=== PATIENT | female | born 1990 | race Caucasian/White ===

== ENCOUNTER 2017-03-11 19:52 | Emergency (ER) | payer SELFPAY ==
[~2017-03-11] VITALS: Ht 149.9 cm; Wt 50.0 kg
[~2017-03-11 19:52] MED LIST: ALPR.5 PO; CLIN2CRE VAGINAL; CLIN2CRE5 VAGINAL; SING4GRA; TRINTAB7 PO
[2017-03-11 20:20] VITALS: BP 119/56; PULSE 77; RESP 16; TEMP 97.8; O2SAT 100
[2017-03-11] MEDS ORDERED: SODIUM CHLOR 0.9% 1000 ML INJ 1,000 ML IV ONE ×2 (20:22→21:45)
[2017-03-11] MEDS ORDERED: ZOFR4TAB3 SL (20:24)
[2017-03-11] MEDS ORDERED: ALUMINUM/MAGNESIUM/SIMETH 30 ML CUP PO ONE (20:30)
[2017-03-11] MEDS ORDERED: PROCHLORPERAZINE INJ 10 MG/2 ML VIAL IV PUSH ONE (20:30)
[2017-03-11] MEDS ORDERED: LIDOCAINE VISCOUS 2% SOLN 15 ML UDC PO ONE (20:30)
[2017-03-11 21:09] LABS: BACTERIA, URINE OCC /hpf; BILIRUBIN, URINE NEG (NEG); BLOOD, URINE NEG (NEG); GLUCOSE,URINE NEG (NEG); KETONE, URINE 150 mg/dL (NEG); MUCUS URINE FEW /lpf (OCC); NITRITE,URINE NEG (NEG); SQUAMOUS EPITHELIAL CELL URINE 4 /hpf (0-5); URINE COLOR YELLOW (YELLW/STRAW); URINE LEUKOCYTE ESTERASE SMALL (NEG)
[2017-03-11] MEDS ORDERED: diphenhydrAMINE HCL 50 MG/ML VIAL IV PUSH ONE (21:15)
[2017-03-11] MEDS ORDERED: PROMETHAZINE INJ 25 MG/ML VIAL IM ONE (21:15)
[2017-03-11 21:28] LABS: AUTOMATED NEUTROPHIL # 12.6 TH/MM3 (1.8-7.7); BASOPHIL # 0.1 TH/MM3 (0-0.2); BASOPHIL % 0.4 % (0.0-2.0); EOSINOPHIL % 0.1 % (0.0-4.0); HEMATOCRIT 34.9 % (35.0-46.0); HEMOGLOBIN 11.7 GM/DL (11.6-15.3); LYMPHOCYTE # 1.5 TH/MM3 (1.0-4.8); MEAN CELL VOLUME 88.7 FL (80.0-100.0); MEAN CORPUSCULAR HEMOGLOBIN 29.7 PG (27.0-34.0); MEAN CORPUSCULAR HGB CONC 33.4 % (32.0-36.0); MEAN PLATELET VOLUME 8.8 FL (7.0-11.0); MONO % 2.7 % (0.0-8.0); MONOCYTE # 0.4 TH/MM3 (0-0.9); NEUT % 86.8 % (16.0-70.0); PLATELET COUNT 382 TH/MM3 (150-450); RED BLOOD COUNT 3.94 MIL/MM3 (4.00-5.30); RED CELL DISTRIBUTION WIDTH 15.2 % (11.6-17.2); WHITE BLOOD COUNT 14.6 TH/MM3 (4.0-11.0)
--- NOTE | 2017-03-11 21:36 | PD ---
HPI Chief Complaint: GI Complaint Time Seen by Provider: 20:22 Travel History International Travel<30 days: No Contact w/Intl Traveler<30days: No Traveled to known affect area: No History of Present Illness HPI 26-year-old female arrives due to vomiting. She called EMS due to the vomiting and severe nausea. She is noted to be 2 para 1 with one prior elective . No vaginal bleeding or discharge. She has Zofran at home however has not taken any. She reports generalized abdominal pain for the past day. No fever. No diarrhea. No dysuria. PFSH Past Medical History Medical History: Denies Significant Hx Diabetes: No Diminished Hearing: No Immunizations Current: Yes (SCHOOL SHOTS UTD) Migraines: Yes Influenza Vaccination: No ?: LMP: 01/17/17 : 1 : 1 Past Surgical History Oral Surgery: Yes (UPPER AND LOWER WISDOM TEETH EXTRACTED 05-13-08) Social History Alcohol Use: No Tobacco Use: No Substance Use: No Allergies-Medications (Allergen,Severity, Reaction): Coded Allergies: No Known Allergies (Verified Adverse Reaction, Unknown, 03/11/17) Reported Meds & Prescriptions Reported Meds & Active Scripts Active Reglan (Metoclopramide HCl) 10 Mg Tab 10 Mg PO TIDAC Reported Zofran Odt (Ondansetron Odt) 4 Mg Tab 4 Mg SL Q6HR PRN Review of Systems Except as stated in HPI: all other systems reviewed are Neg General / Constitutional: No: Fever Physical Exam Narrative GENERAL: 26-year-old female pleasant well-nourished well-developed mild to moderate distress SKIN: Warm and dry. HEAD: Atraumatic. Normocephalic. EYES: Pupils equal and round. No scleral icterus. No injection or drainage. ENT: No nasal bleeding or discharge. Mucous membranes pink and moist. NECK: Trachea midline. No JVD. CARDIOVASCULAR: Regular rate and rhythm. RESPIRATORY: No accessory muscle use. Clear to auscultation. Breath sounds equal bilaterally. GASTROINTESTINAL: Diffuse nonspecific tenderness. Guarding is present. MUSCULOSKELETAL: Extremities without clubbing, cyanosis, or edema. No obvious deformities. NEUROLOGICAL: Awake and alert. No obvious cranial nerve deficits. Motor grossly within normal limits. Five out of 5 muscle strength in the arms and legs. Normal speech. PSYCHIATRIC: Appropriate mood and affect; insight and judgment normal. Data Data Last Documented VS Vital Signs Date Time Temp Pulse Resp B/P (MAP) Pulse Ox O2 Delivery O2 Flow Rate FiO2 03/11/17 20:20 97.8 77 16 119/56 (77) 100 Orders Orders Beta Hcg (Quant/Titer) (03/11/17 20:22) Complete Blood Count With Diff (03/11/17 20:22) Comprehensive Metabolic Panel (03/11/17 20:22) Us Pelvis (Ques Preg/Ectopic) (03/11/17 ) Urinalysis - C+S If Indicated (03/11/17 20:22) Iv Access Insert/Monitor (03/11/17 20:22) Ecg Monitoring (03/11/17 20:22) Sodium Chlor 0.9% 1000 Ml Inj (Ns 1000 M (03/11/17 20:22) Ed Urine Pregnancytest Poc (03/11/17 20:22) Prochlorperazine Inj (Compazine Inj) (03/11/17 20:30) Lipase (03/11/17 20:22) Al-Mag Hy-Si 40-40-4 Mg/Ml Liq (Mag-Al P (03/11/17 20:30) Lidocaine 2% Viscous (Xylocaine 2% Visco (03/11/17 20:30) Diphenhydramine Inj (Benadryl Inj) (03/11/17 21:15) Promethazine Inj (Phenergan Inj) (03/11/17 21:15) Sodium Chlor 0.9% 1000 Ml Inj (Ns 1000 M (03/11/17 21:45) Metoclopramide Inj (Reglan Inj) (03/11/17 23:30) Ed Discharge Order (03/11/17 23:23) Acetaminophen (Tylenol) (03/11/17 23:45) Labs Laboratory Tests Test 03/11/17 20:30 White Blood Count 14.6 TH/MM3 Red Blood Count 3.94 MIL/MM3 Hemoglobin 11.7 GM/DL Hematocrit 34.9 % Mean Corpuscular Volume 88.7 FL Mean Corpuscular Hemoglobin 29.7 PG Mean Corpuscular Hemoglobin Concent 33.4 % Red Cell Distribution Width 15.2 % Platelet Count 382 TH/MM3 Mean Platelet Volume 8.8 FL Neutrophils (%) (Auto) 86.8 % Lymphocytes (%) (Auto) 10.0 % Monocytes (%) (Auto) 2.7 % Eosinophils (%) (Auto) 0.1 % Basophils (%) (Auto) 0.4 % Neutrophils # (Auto) 12.6 TH/MM3 Lymphocytes # (Auto) 1.5 TH/MM3 Monocytes # (Auto) 0.4 TH/MM3 Eosinophils # (Auto) 0.0 TH/MM3 Basophils # (Auto) 0.1 TH/MM3 CBC Comment DIFF FINAL Differential Comment Urine Color YELLOW Urine Turbidity HAZY Urine pH 7.0 Urine Specific [place] 1.028 Urine Protein 30 mg/dL Urine Glucose (UA) NEG mg/dL Urine Ketones 150 mg/dL Urine Occult Blood NEG Urine Nitrite NEG Urine Bilirubin NEG Urine Urobilinogen LESS THAN 2.0 MG/DL Urine Leukocyte Esterase SMALL Urine RBC 1 /hpf Urine WBC 8 /hpf Urine Squamous Epithelial Cells 4 /hpf Urine Bacteria OCC /hpf Urine Mucus FEW /lpf Microscopic Urinalysis Comment CULT NOT INDICATED Blood Urea Nitrogen 8 MG/DL Creatinine 0.85 MG/DL Random Glucose 105 MG/DL Total Protein 7.8 GM/DL Albumin 4.2 GM/DL Calcium Level 9.7 MG/DL Alkaline Phosphatase 46 U/L Aspartate Amino Transf (AST/SGOT) 11 U/L Alanine Aminotransferase (ALT/SGPT) 14 U/L Total Bilirubin 0.5 MG/DL Sodium Level 135 MEQ/L Potassium Level 3.7 MEQ/L Chloride Level 102 MEQ/L Carbon Dioxide Level 18.1 MEQ/L Anion Gap 15 MEQ/L Estimat Glomerular Filtration Rate 81 ML/MIN Lipase 73 U/L Human Chorionic Gonadotropin, Quant 43256 MIU/ML [facility] Medical Decision Making Medical Screen Exam Complete: Yes Emergency Medical Condition: Yes Medical Record Reviewed: Yes Differential Diagnosis IUP, UTI, ectopic , ov torsion, appendicitis, TOA, cervicitis, BV, Trichomoniasis, ov cyst, hernia, mittelschmerz, pain from menstruation Narrative Course CBC & BMP Diagram 03/11/17 20:30 Total Protein 7.8, Albumin 4.2, Calcium Level 9.7, Alkaline Phosphatase 46, Aspartate Amino Transf (AST/SGOT) 11 L, Alanine Aminotransferase (ALT/SGPT) 14, Total Bilirubin 0.5 Lipase 73 HCG 22,415 UA: sm leuk est, 8 wbcs Last Impressions Pelvis Ultrasound 03/11/17 0000 Signed Impressions: Service Date/Time: Saturday, March 11, 2017 21:08 - CONCLUSION: 1. Single intrauterine at approximately 5 weeks 5 days gestational age. No perceptible heart tones and clinical/ultrasound followup recommended as indicated. 2. 1 cm corpus luteal cyst of the right ovary. No evidence of ectopic. 3. Normal left ovary. 4. No free fluid. Nick Guerrero MD The patient is resting comfortably and feels better, is alert and in no distress. The patients results and examination findings were discussed. The repeat examination is unremarkable and benign. The history, exam, diagnostic testing, and current condition do not suggest any significant pathology to warrant further testing, continued ED treatment, admission, or surgical evaluation at this point. The vital signs have been stable. The patient does not have uncontrollable pain, intractable vomiting, or other significant symptoms. The patient's condition is stable and appropriate for discharge. The patient will pursue further outpatient evaluation with a primary care physician or other designated or consulting physician as indicated in the discharge instructions. The patient expressed understanding and was agreeable with this plan. Diagnosis Primary Impression: Nausea & vomiting Qualified Codes: R11.2 - Nausea with vomiting, unspecified Additional Impression: Abdominal pain during intrauterine Referrals: Myla Robert MD 2 days Phosphoric Acid Operator 2 days Med/Other Pt SpecificInfo: Prescription(s) given Scripts Metoclopramide (Reglan) 10 Mg Tab 10 MG PO TIDAC for Nausea/Vomiting, #20 TAB 0 Refills Prov: Yefri Salinas MD 03/11/17 Disposition: 01 DISCHARGE HOME Condition: Stable Yefri Salinas MD Mar 11, 2017 21:36
[2017-03-11 21:46] LABS: ALBUMIN 4.2 GM/DL (3.4-5.0); AST (GOT) 11 U/L (15-37); BICARBONATE 18.1 MEQ/L (21.0-32.0); BLOOD UREA NITROGEN 8 MG/DL (7-18); CALCIUM 9.7 MG/DL (8.5-10.1); CHLORIDE 102 MEQ/L (98-107); CREATININE 0.85 MG/DL (0.50-1.00); GLOMERULAR FILTRATION RATE 81 ML/MIN (>89); GLUCOSE,RANDOM 105 MG/DL (74-106); LIPASE 73 U/L (73-393); SODIUM (NA) 135 MEQ/L (136-145)
[2017-03-11 21:47] LABS: ALT (GPT) 14 U/L (10-53)
[2017-03-11 22:03] LABS: ALKALINE PHOSPHATASE 46 U/L (45-117); TOTAL BILIRUBIN ADULT 0.5 MG/DL (0.2-1.0); TOTAL PROTEIN 7.8 GM/DL (6.4-8.2)
--- NOTE | 2017-03-11 22:16 | RADRPT ---
EXAM DATE/TIME: 03/11/2017 21:08 [place] COMPARISON: No previous studies available for comparison. INDICATIONS : Pelvic pain. LAB(S): Beta-hC MEDICAL HISTORY : Migraine. SURGICAL HISTORY : Oral surgery. Left foot surgery. ENCOUNTER: Initial ACUITY: 1 month PAIN SCORE: 10/10 LOCATION: Bilateral pelvis MEASUREMENTS: UTERUS: 8.2 x 5.6 x 5.4 cm ENDOMETRIAL STRIPE: 10 mm RIGHT OVARY: 2.0 x 2.3 x 2.0 cm LEFT OVARY: 2.8 x 1.9 x 1.6 cm FREE FLUID: No CROWN RUMP LENGTH: 0.22 cm = 5 WKS 5 DAYS FINDINGS: UTERUS: Gestational sac, yolk sac and pole seen within the uterine cavity. Lind-rump like is 2.2 mm wh ich corresponds to a gestational age of 5 weeks 5 days. No perceptible heart tones. RIGHT OVARY: 1 cm cyst. LEFT OVARY: Ovary contains no mass or significant cystic lesion. MISCELLANEOUS: No free fluid. CONCLUSION: 1. Single intrauterine at approximately 5 weeks 5 days gestational age. No perceptible feta l heart tones and clinical/ultrasound followup recommended as indicated. 2. 1 cm corpus luteal cyst of the right ovary. No evidence of ectopic. 3. Normal left ovary. 4. No free fluid. Nick Guerrero MD on March 11, 2017 at 22:10 Board Certified Radiologist. This report was verified electronically.
[2017-03-11] MEDS ORDERED: REGL10TA5 PO (23:15)
[2017-03-11] MEDS ORDERED: METOCLOPRAMIDE HCL 10 MG/2 ML VIAL IV PUSH ONE (23:30)
[2017-03-11] MEDS ORDERED: ACETAMINOPHEN 325 MG TAB PO ONE (23:45)
== END 2017-03-11 23:54 | disposition home or self-care (01) ==
LOC: NEPE 19:52
DX: O21.9 Vomiting of pregnancy, unspecified (principal); Z3A.01 Less than 8 weeks gestation of pregnancy
CPT/HCPCS: 76700; 80053; 81001; 83690; 84702; 84703; 85025; 96361; 96372; 96374; 96375; 99285; J0780; J1200; J2550; J2765; J7030

== ENCOUNTER 2017-08-06 05:09 | Emergency (ER) | payer BC ==
[~2017-08-06] VITALS: Ht 149.9 cm; Wt 55.0 kg
[~2017-08-06 05:09] MED LIST changes: -ALPR.5 PO; -CLIN2CRE VAGINAL; -CLIN2CRE5 VAGINAL; +REGL10TA5 PO; -SING4GRA; -TRINTAB7 PO; +ZOFR4TAB3 SL
[2017-08-06 05:12] VITALS: BP 148/69; PULSE 78; RESP 24; TEMP 97.7; O2SAT 100
[2017-08-06] MEDS ORDERED: SODIUM CHLOR 0.9% 1000 ML INJ 1,000 ML IV SCH (05:50)
[2017-08-06] MEDS ORDERED: KETOROLAC TROMETHAMINE 30 MG/ML (IVP) VIAL IVP ONE (06:00)
[2017-08-06] MEDS ORDERED: PROCHLORPERAZINE INJ 10 MG/2 ML VIAL IV PUSH ONE (06:00)
[2017-08-06] MEDS ORDERED: diphenhydrAMINE HCL 50 MG/ML VIAL IV PUSH ONE (06:00)
[2017-08-06] MEDS ORDERED: SODIUM CHLORIDE 0.9% FLUSH 10 ML FLUSH IV FLUSH PRN (06:00)
[2017-08-06 06:11] LABS: AUTOMATED NEUTROPHIL # 7.6 TH/MM3 (1.8-7.7); BASOPHIL % 0.5 % (0.0-2.0); HEMATOCRIT 36.4 % (35.0-46.0); HEMOGLOBIN 12.6 GM/DL (11.6-15.3); LYMPH % 12.8 % (9.0-44.0); LYMPHOCYTE # 1.2 TH/MM3 (1.0-4.8); MEAN CELL VOLUME 91.2 FL (80.0-100.0); MEAN CORPUSCULAR HEMOGLOBIN 31.5 PG (27.0-34.0); MEAN CORPUSCULAR HGB CONC 34.5 % (32.0-36.0); MEAN PLATELET VOLUME 7.9 FL (7.0-11.0); MONO % 3.3 % (0.0-8.0); MONOCYTE # 0.3 TH/MM3 (0-0.9); NEUT % 83.4 % (16.0-70.0); PLATELET COUNT 396 TH/MM3 (150-450); RED BLOOD COUNT 3.99 MIL/MM3 (4.00-5.30); RED CELL DISTRIBUTION WIDTH 15.3 % (11.6-17.2); WHITE BLOOD COUNT 9.1 TH/MM3 (4.0-11.0)
[2017-08-06 06:23] LABS: BACTERIA, URINE OCC /hpf; BILIRUBIN, URINE NEG (NEG); BLOOD, URINE NEG (NEG); GLUCOSE,URINE NEG (NEG); KETONE, URINE 80 OR GREATER mg/dL (NEG); MUCUS URINE MOD /lpf (OCC); NITRITE,URINE POS (NEG); SQUAMOUS EPITHELIAL CELL URINE 6 /hpf (0-5); URINE COLOR YELLOW (YELLW/STRAW); URINE LEUKOCYTE ESTERASE NEG (NEG)
[2017-08-06 06:35] LABS: ALBUMIN 4.4 GM/DL (3.4-5.0); AST (GOT) 18 U/L (15-37); BICARBONATE 20.4 MEQ/L (21.0-32.0); BLOOD UREA NITROGEN 10 MG/DL (7-18); CALCIUM 9.4 MG/DL (8.5-10.1); CHLORIDE 108 MEQ/L (98-107); CREATININE 0.95 MG/DL (0.50-1.00); GLOMERULAR FILTRATION RATE 71 ML/MIN (>89); GLUCOSE,RANDOM 106 MG/DL (74-106); SODIUM (NA) 142 MEQ/L (136-145)
[2017-08-06 06:36] LABS: ALT (GPT) 20 U/L (10-53)
[2017-08-06 06:38] LABS: ALKALINE PHOSPHATASE 50 U/L (45-117); TOTAL BILIRUBIN ADULT 0.5 MG/DL (0.2-1.0); TOTAL PROTEIN 8.2 GM/DL (6.4-8.2)
[2017-08-06] MEDS ORDERED: PROM25TA10 PO (06:53)
--- NOTE | 2017-08-06 06:53 | PD ---
HPI Chief Complaint: GI Complaint Time Seen by Provider: 05:23 Travel History International Travel<30 days: No Contact w/Intl Traveler<30days: No Traveled to known affect area: No History of Present Illness HPI This is a 27-year-old female who presents to the emergency department with abrupt onset abdominal pain, nausea and vomiting that started at 9 PM after work this evening. Her symptoms are constant, moderate severity, with no associated fevers or chills. She has had symptoms like this before. She sees a GI doctor and just recently had an endoscopy which was reassuring. She does smoke marijuana 2-3 times a week. PFSH Past Medical History Diabetes: No Diminished Hearing: No Immunizations Current: Yes (SCHOOL SHOTS UTD) Migraines: Yes ?: Unknown : 1 : 1 Past Surgical History Oral Surgery: Yes (UPPER AND LOWER WISDOM TEETH EXTRACTED 05-13-08) Social History Alcohol Use: Yes Tobacco Use: No Substance Use: No Allergies-Medications (Allergen,Severity, Reaction): Coded Allergies: No Known Allergies (Verified Adverse Reaction, Unknown, 08/06/17) Reported Meds & Prescriptions Reported Meds & Active Scripts Active Reglan (Metoclopramide HCl) 10 Mg Tab 10 Mg PO TIDAC Reported Zofran Odt (Ondansetron Odt) 4 Mg Tab 4 Mg SL Q6HR PRN Review of Systems Except as stated in HPI: all other systems reviewed are Neg Physical Exam Narrative GENERAL:Well appearing, no acute distress SKIN: Focused skin assessment warm and dry. HEAD: Atraumatic. Normocephalic. EYES: Pupils equal and round. No injection or drainage. ENT: Moist mucous membranes NECK: Trachea midline. CARDIOVASCULAR: Regular rate and rhythm. No murmur appreciated. RESPIRATORY: Clear to auscultation. Breath sounds equal bilaterally. GASTROINTESTINAL: Abdomen soft, diffusely mildly tender to palpation with no rebound or guarding. MUSCULOSKELETAL: No obvious deformities. NEUROLOGICAL: Awake and alert. No obvious cranial nerve deficits. Moving all extremities. PSYCHIATRIC: Appropriate mood and affect; insight and judgment normal. Data Data Last Documented VS Vital Signs Date Time Temp Pulse Resp B/P (MAP) Pulse Ox O2 Delivery O2 Flow Rate FiO2 08/06/17 05:12 97.7 78 24 148/69 (95) 100 Orders Orders Ed Urine Pregnancytest Poc (08/06/17 05:24) Complete Blood Count With Diff (08/06/17 05:50) Comprehensive Metabolic Panel (08/06/17 05:50) Lipase (08/06/17 05:50) Urinalysis - C+S If Indicated (08/06/17 05:50) Iv Access Insert/Monitor (08/06/17 05:50) Ecg Monitoring (08/06/17 05:50) Oximetry (08/06/17 05:50) Sodium Chlor 0.9% 1000 Ml Inj (Ns 1000 M (08/06/17 05:50) Sodium Chloride 0.9% Flush (Ns Flush) (08/06/17 06:00) Ketorolac Inj (Toradol Inj) (08/06/17 06:00) Prochlorperazine Inj (Compazine Inj) (08/06/17 06:00) Diphenhydramine Inj (Benadryl Inj) (08/06/17 06:00) Urine Culture (08/06/17 06:04) Labs Laboratory Tests Test 08/06/17 06:00 08/06/17 06:04 White Blood Count 9.1 TH/MM3 Red Blood Count 3.99 MIL/MM3 Hemoglobin 12.6 GM/DL Hematocrit 36.4 % Mean Corpuscular Volume 91.2 FL Mean Corpuscular Hemoglobin 31.5 PG Mean Corpuscular Hemoglobin Concent 34.5 % Red Cell Distribution Width 15.3 % Platelet Count 396 TH/MM3 Mean Platelet Volume 7.9 FL Neutrophils (%) (Auto) 83.4 % Lymphocytes (%) (Auto) 12.8 % Monocytes (%) (Auto) 3.3 % Eosinophils (%) (Auto) 0.0 % Basophils (%) (Auto) 0.5 % Neutrophils # (Auto) 7.6 TH/MM3 Lymphocytes # (Auto) 1.2 TH/MM3 Monocytes # (Auto) 0.3 TH/MM3 Eosinophils # (Auto) 0.0 TH/MM3 Basophils # (Auto) 0.0 TH/MM3 CBC Comment DIFF FINAL Differential Comment Blood Urea Nitrogen 10 MG/DL Creatinine 0.95 MG/DL Random Glucose 106 MG/DL Total Protein 8.2 GM/DL Albumin 4.4 GM/DL Calcium Level 9.4 MG/DL Alkaline Phosphatase 50 U/L Aspartate Amino Transf (AST/SGOT) 18 U/L Alanine Aminotransferase (ALT/SGPT) 20 U/L Total Bilirubin 0.5 MG/DL Sodium Level 142 MEQ/L Potassium Level 3.6 MEQ/L Chloride Level 108 MEQ/L Carbon Dioxide Level 20.4 MEQ/L Anion Gap 14 MEQ/L Estimat Glomerular Filtration Rate 71 ML/MIN Lipase 67 U/L Urine Color YELLOW Urine Turbidity HAZY Urine pH 8.0 Urine Specific [place] 1.023 Urine Protein 30 mg/dL Urine Glucose (UA) NEG mg/dL Urine Ketones 80 OR GREATER mg/dL Urine Occult Blood NEG Urine Nitrite POS Urine Bilirubin NEG Urine Urobilinogen LESS THAN 2 mg/dL Urine Leukocyte Esterase NEG Urine RBC LESS THAN 1 /hpf Urine WBC 2 /hpf Urine Squamous Epithelial Cells 6 /hpf Urine Bacteria OCC /hpf Urine Mucus MOD /lpf Microscopic Urinalysis Comment CULTURE INDICATED MDM Medical Decision Making Medical Screen Exam Complete: Yes Emergency Medical Condition: Yes Interpretation(s) Afebrile, no tachycardia, hypertensive No leukocytosis Electrolytes are reassuring Urinalysis does demonstrate some bacteria and nitrites Differential Diagnosis Gastritis, cannabis hyperemesis syndrome, gastroparesis, appendicitis, cholelithiasis, cholecystitis, Narrative Course This is a 27-year-old female who presents to the emergency department with vomiting and abdominal pain. She was placed on a monitor and an IV was established. Labs were obtained which were reassuring. Given the patient's description of symptoms I suspect she may have cannabis hyperemesis syndrome. I do not think any imaging is warranted as she just had an extensive workup done by her neon glass blower. She feels much better after IV antiemetics and IV fluids. She will be discharged home and was counseled on cannabis cessation. Diagnosis Primary Impression: Cannabis hyperemesis syndrome concurrent with and due to cannabis abuse Patient Instructions: General Instructions Additional Instructions: If you develop severe or worsening abdominal pain, fever>100.4, persistent vomiting or inability to eat or drink return to the emergency department immediately. Follow up with your primary care physician in 1-2 days for a check-up. Med/Other Pt SpecificInfo: Prescription(s) given Scripts Promethazine (Phenergan) 25 Mg Tablet 25 MG PO Q6H Y for NAUSEA OR VOMITING, #12 TAB 0 Refills Prov: Dahiana Sahu MD 08/06/17 Disposition: DISCHARGE HOME Condition: Stable Dahiana Sahu MD Aug 06, 2017 06:53
== END 2017-08-06 07:10 | disposition home or self-care (01) ==
LOC: NEPE 05:09
DX: F12.188 Cannabis abuse with other cannabis-induced disorder (principal); R82.99 Other abnormal findings in urine; B96.20 Unspecified Escherichia coli [E. coli] as the cause of diseases classified elsewhere
CPT/HCPCS: 80053; 81001; 83690; 84703; 85025; 87077; 87086; 87186; 96374; 96375; 99284; J0780; J1200; J1885; J7030